=== PATIENT | female | born 1990 | race Caucasian/White ===

== ENCOUNTER → 2017-07-12 | Outpatient (CLI) | payer OTHER | LOC: M.ULTRA 15:15 | DX: N83.202 Unspecified ovarian cyst, left side (principal) ==

== ENCOUNTER → 2018-02-22 | Outpatient (CLI) | payer OTHER | LOC: M.ULTRA 15:22 | DX: R10.2 Pelvic and perineal pain (principal); Z87.42 Personal history of other diseases of the female genital tract ==